=== PATIENT | female | born 1935 | race Caucasian/White ===

== ENCOUNTER 2023-04-11 10:42 | Outpatient (RCR) | payer MEDICARE, OTHER | END 2023-04-13 | disposition home or self-care (01) | LOC: OT | DX: S42.201D Unspecified fracture of upper end of right humerus, subsequent encounter for fracture with routine healing (principal); X58.XXXD Exposure to other specified factors, subsequent encounter ==

== ENCOUNTER 2023-04-14 08:31 | Outpatient (RCR) | payer MEDICARE, OTHER | END 2023-05-12 | disposition home or self-care (01) | LOC: OT | DX: S42.201D Unspecified fracture of upper end of right humerus, subsequent encounter for fracture with routine healing (principal); X58.XXXD Exposure to other specified factors, subsequent encounter ==